=== PATIENT | female | born 1980 | race Caucasian/White ===

== ENCOUNTER 2022-02-10 20:50 | Emergency (ER) | payer OTHER ==
[~2022-02-10 20:50] MED LIST: DEXILANT60 MG PO; HYDROXYZINE PAM25 MG PO; LOPRESSOR 25 MG25 MG PO; NITROSTAT0.4 MG SL; NORTRIPTYLINE H25 MG PO; VIMPAT200 MG PO; VITAMIN D3125 MCG PO; ZOFRAN ODT 4 MG4 MG SL
== END 2022-02-10 22:55 | disposition left against medical advice (07) ==
LOC: ER1 20:50
DX: Z53.21 Procedure and treatment not carried out due to patient leaving prior to being seen by health care provider (principal)